=== PATIENT | female | born 1990 | race Caucasian/White ===

== ENCOUNTER 2017-02-16 09:25 | Emergency (ER) | payer MEDICAID, OTHER ==
[~2017-02-16] VITALS: Ht 152.4 cm; Wt 66.0 kg
[~2017-02-16 09:25] MED LIST: PREN1TAB49 PO
[2017-02-16 09:28] VITALS: Ht 152.4 cm; Wt 66.0 kg
[2017-02-16] MEDS ORDERED: IBUPROFEN 600 MG TAB PO ONE (10:00)
--- NOTE | 2017-02-16 10:39 | RADRPT ---
PROCEDURE: XR Ankle. CLINICAL INDICATION: Right ankle pain. Trauma. TECHNIQUE: Three views of the right ankle are available for review. COMPARISON: None available FINDINGS: The osseous structures, articular spaces, and surrounding soft tissues of the right ankle are intact . No acute fracture or dislocation is seen. No radiopaque foreign body is identified. A marker is pointing towards the lateral malleolus. No abnormality is seen at this position. IMPRESSION: 1. Unremarkable right ankle x-ray series. RPTAT: HMJB .Drew Gonzalez MD, MD Date Time Electronically viewed and signed by .Drew Gonzalez MD, on 02/16/2017 10:38 .B/
[2017-02-16] MEDS ORDERED: IBUP-1542 PO (10:45)
--- NOTE | 2017-02-16 10:49 | ERD ---
ER Documentation Chief Complaint Date/Time DATE: 02/16/17 TIME: 10:46 Chief Complaint RT ANKLE PAIN X 3 DAYS HPI Patient is a 26-year-old female who twisted her right ankle 3 days ago. She is complaining of 6 out of 10 throbbing pain in the right ankle. She is able to ambulate slowly with pain. Denies any numbness or tingling. Denies any head injury or KO. She has not taken any medications for pain. ROS All systems reviewed and are negative except as per history of present illness. Medications Home Meds Active Scripts Ibuprofen* (Motrin*) 600 Mg Tab, 600 MG PO Q6, #30 TAB Prov:CIPRIANO DE LEON PA-C 02/16/17 Reported Medications Vits W-Ca,Fe,Fa(<1MG) () 1 Tab Tablet, 1 TAB PO DAILY, #1 04/08/12 Vits W-Ca,Fe,Fa(<1MG) () 1 Tab Tablet, 1 TAB PO 03/11/12 Allergies Allergies: Coded Allergies: Fish Containing Products (Verified Allergy, Severe, 02/16/17) Shellfish (Verified Allergy, Severe, 02/16/17) Uncoded Allergies: SEAFOOD (Allergy, Severe, 03/11/12) PMhx/Soc Medical and Surgical Hx: pt denies Medical Hx, pt denies Surgical Hx Hx Alcohol Use: No Hx Substance Use: No Hx Tobacco Use: No FmHx Family History: No diabetes Physical Exam Vitals Vital Signs Date Time Temp Pulse Resp B/P Pulse Ox O2 Delivery O2 Flow Rate FiO2 02/16/17 09:28 98.1 67 16 109/65 98 Physical Exam General: well developed, well nourished, alert, nontoxic, no distress Respiratory: Clear to auscaultation bilaterally, speaks in full sentences, no use of accesory muscles or labored breathing, no rales, ronchi, or wheezing Cardiovascular: RRR, No murmurs Extremities: Right ankle has some mild tenderness over the lateral malleolus, no edema, no bony abnormalities, sensation to light touch is intact, pedal pulses 2+, capillary refill less than 2 seconds Results 24 hrs Current Medications Medications (Trade) Dose Ordered Sig/Moiz Route PRN Reason Start Time Stop Time Status Last Admin Dose Admin Ibuprofen (Motrin) 600 mg ONCE ONCE PO 02/16/17 10:00 02/16/17 10:01 DC 02/16/17 10:08 Procedures/MDM Patient presents with ankle pain after twisting injury 3 days ago. She is neurovascularly intact. She was given Motrin for pain control. X-ray was unremarkable. Her ankle was Codey wrap that she was given crutches and prescription for Motrin. Recommended this patient follow up with her primary care doctor within 48 hours or return to the emergency room for any worsening of symptoms. However this time I do believe there is suitable for outpatient management. I answered all their questions and they agreed with the plan and were discharged home. Departure Diagnosis: Primary Impression: Ankle sprain Condition: Stable Patient Instructions: Self-Care for Strains and Sprains Additional Instructions: Call your primary care doctor TOMORROW for an appointment during the next 1-2 days.See the doctor sooner or return here if your condition worsens before your appointment time. CIPRIANO DE LEON PA-C Feb 16, 2017 10:49
== END 2017-02-16 11:10 | disposition home or self-care (01) ==
LOC: FTE 09:25
DX: S93.401A Sprain of unspecified ligament of right ankle, initial encounter (principal); X50.9XXA Other and unspecified overexertion or strenuous movements or postures, initial encounter; Y92.9 Unspecified place or not applicable
CPT/HCPCS: 73610; Z7502; Z7610

== ENCOUNTER 2017-05-06 17:33 | Emergency (ER) | payer OTHER ==
[~2017-05-06] VITALS: Ht 160 cm; Wt 67.5 kg
[~2017-05-06 17:33] MED LIST changes: +IBUP-1542 PO
[2017-05-06 18:59] VITALS: Ht 160 cm; Wt 67.5 kg
[2017-05-06] MEDS ORDERED: IBUP-1542 PO (21:07)
--- NOTE | 2017-05-06 21:20 | ERD ---
ER Documentation Chief Complaint Date/Time DATE: 05/06/17 TIME: 21:18 Chief Complaint L rib pain since last Saturday, pt has cough/nasal congestion HPI This is a 26-year-old female presenting to the emergency department complaining of left lateral chest pain, locating in the muscular region. Patient states that she has been coughing the past couple weeks and has already been treated with antibiotics Augmentin. Patient states that she does not think the pain is coming from lungs. She denies any medications, SOB, chest pain ROS All systems reviewed and are negative except as per history of present illness. Medications Home Meds Active Scripts Ibuprofen* (Motrin*) 600 Mg Tab, 600 MG PO Q6H Y for PAIN AND OR ELEVATED TEMP, #30 TAB Prov:BARBARA SHOEMAKER PA-C 05/06/17 Ibuprofen* (Motrin*) 600 Mg Tab, 600 MG PO Q6, #30 TAB Prov:CIPRIANO DE LEON PA-C 02/16/17 Reported Medications Vits W-Ca,Fe,Fa(<1MG) () 1 Tab Tablet, 1 TAB PO DAILY, #1 04/08/12 Vits W-Ca,Fe,Fa(<1MG) () 1 Tab Tablet, 1 TAB PO 03/11/12 Allergies Allergies: Coded Allergies: Fish Containing Products (Verified Allergy, Severe, 02/16/17) Shellfish (Verified Allergy, Severe, 02/16/17) Uncoded Allergies: SEAFOOD (Allergy, Severe, 03/11/12) PMhx/Soc Medical and Surgical Hx: pt denies Medical Hx History of Surgery: Yes (C SECTION) Anesthesia Reaction: No Hx Neurological Disorder: No Hx Respiratory Disorders: No Hx Cardiac Disorders: No Hx Psychiatric Problems: No Hx Miscellaneous Medical Probl: No Hx Alcohol Use: No Hx Substance Use: No Hx Tobacco Use: No Smoking Status: Never smoker Physical Exam Vitals Vital Signs Date Time Temp Pulse Resp B/P Pulse Ox O2 Delivery O2 Flow Rate FiO2 05/06/17 18:59 98.9 61 20 135/86 99 Physical Exam Const: WDWN Head: Atraumatic Eyes: Normal Conjunctiva ENT: Normal External Ears, Nose and Mouth. Neck: Full range of motion..~ No meningismus. Resp: Clear to auscultation bilaterally TTP in left costochondral joint Cardio: Regular rate and rhythm, no murmurs Abd: Soft, non tender, non distended. Normal bowel sounds Skin: No petechiae or rashes Back: No midline or flank tenderness Ext: No cyanosis, or edema Neur: Awake and alert Psych: Normal Mood and Affect Procedures/MDM MDM: 26-year-old female presents to the ER left lateral chestwall tenderness, likely costochondritis. Low suspicion for acute coronary syndrome, pulmonary embolism, rib fracture, pneumothorax. Patient appears well, stable vital signs. Prescription for ibuprofen was given, discussed to return to this facility if not improving as expected or for any worsening signs or symptoms. Patient understood and agreed with this plan. Departure Diagnosis: Primary Impression: Costochondritis Condition: Stable Patient Instructions: Chest Wall Pain, Costochondritis Additional Instructions: FOLLOW UP WITH YOUR PRIMARY CARE PHYSICIAN TOMORROW.Return to this facility if you are not improving as expected. Take all medicines as directed. Return to this facility if you are not improving as expected. BARBARA SHOEMAKER PA-C May 06, 2017 21:20
== END 2017-05-06 21:19 | disposition home or self-care (01) ==
LOC: FTE 17:33
DX: M94.0 Chondrocostal junction syndrome [Tietze] (principal)
CPT/HCPCS: 99283